=== PATIENT | male | born 1955 | race Caucasian/White ===

== ENCOUNTER 2022-12-30 15:21 | Emergency (ER) | payer MEDICARE, MEDICAID, SELFPAY ==
--- NOTE | ~2022-12-30 | XR_ITS ---
Examination: Bilateral foot. CLINICAL INDICATION: New for the wound, rule out osteomyelitis. COMPARISON: None. TECHNIQUE: 2 views each foot. FINDINGS: Left foot: There is talipes equinovarus deformity of left foot with hyperflexion of the ankle mortise with likely subluxation. No visible fracture or dislocation seen. As mild osteopenia. There is no cortical erosive changes or periosteal thickening seen to suspect osteomyelitis. There is no soft tissue swelling or gas visualized either. Right foot: There is talipes equinovarus deformity of the right foot and medial subluxation of proximal tibia and fibula at the ankle joint. There is mild soft tissue swelling along the anterior aspect of ankle joint. Mild osteopenia seen. There is no fracture or cortical erosive changes to suspect osteomyelitis. XR/XR foot LT 2V IMPRESSION: 1. 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 There is extreme flexion deformity of the ankle joint left foot. 2. There is no cortical erosive changes or periosteal thickening to suspect osteomyelitis in either foot.. 3. There is mild soft tissue swelling anterior to the right ankle joint but no fracture or cortical erosive changes seen.
--- NOTE | ~2022-12-30 | XR_ITS ---
Examination: Bilateral foot. CLINICAL INDICATION: New for the wound, rule out osteomyelitis. COMPARISON: None. TECHNIQUE: 2 views each foot. FINDINGS: Left foot: There is talipes equinovarus deformity of left foot with hyperflexion of the ankle mortise with likely subluxation. No visible fracture or dislocation seen. As mild osteopenia. There is no cortical erosive changes or periosteal thickening seen to suspect osteomyelitis. There is no soft tissue swelling or gas visualized either. Right foot: There is talipes equinovarus deformity of the right foot and medial subluxation of proximal tibia and fibula at the ankle joint. There is mild soft tissue swelling along the anterior aspect of ankle joint. Mild osteopenia seen. There is no fracture or cortical erosive changes to suspect osteomyelitis. XR/XR foot RT 2V IMPRESSION: 1. 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 There is extreme flexion deformity of the ankle joint left foot. 2. There is no cortical erosive changes or periosteal thickening to suspect osteomyelitis in either foot.. 3. There is mild soft tissue swelling anterior to the right ankle joint but no fracture or cortical erosive changes seen.
[2022-12-30 15:27] VITALS: BP 124/84; PULSE 99; O2SAT 97
[2022-12-30 15:45] VITALS: BP 115/78; PULSE 97; RESP 18; TEMP 36.8; O2SAT 96; BMI 24.7
--- NOTE | 2022-12-30 15:55 | ED_ITS ---
HPI - Extremity Injury (Lower) General Chief Complaint: Skin/Abscess/Foreign Body Stated Complaint: COLD FEET Time Seen by Provider: 12/30/22 15:45 Source: EMS Mode of arrival: EMS Limitations: other (Patient answers questions with yes or no answers only) History of Present Illness HPI Narrative: 67-year-old male with history of schizophrenia hypertension, high cholesterol, who by report is verbal but answers yes or no to questions who was sent to the emergency department from his long-term care facility, [facility] for evaluation coolness to his lower extremities and new wounds noted on the dorsal aspects both feet. The patient has deformities the lower extremities with the feet pointing inward and a severe angle. The patient does not appear to be in distress. Following information was obtained from the report sent in from the nursing facility: ?Has two newly identified areas. Area on left foot, raised, edges macerated, very cool to touch. Temperature not registering with temporal thermometer,reads 'LO', slight discoloration surrounding open area. Area on right foot, raised edges, macerated, moderate serosanguineous drainage. Wound area firm with soft area palpated laterally. Please x-ray Related Data Previous Rx's Medication Instructions Recorded cephalexin 500 mg capsule 500 mg PO QID 7 days #28 caps 12/30/22 Allergies Allergy/AdvReac Type Severity Reaction Status Date / Time Phenothiazines Allergy Unknown UNKNOWN Verified 12/30/22 15:44 [PHENOTHIAZINES] chlorpromazine Allergy Unknown Verified 12/30/22 15:44 [From Thorazine] fluphenazine Allergy Unknown Verified 12/30/22 15:44 Review of Systems 2 Review of Systems: Yes Unobtainable due to mental status [facility] Past Medical History [facility] Narrative: Past medical history: Schizophrenia, unspecified acquired deformities lower extremities, adverse effects of drugs, essential hypertension, high cholesterol. Social history: Patient is a resident of [facility]. Social History Smoked in Last 30 Days: No Use of substances other than those prescribed or required for medical reasons: No Advance Directives: No Advance Directives Information Provided: No Physical Exam 2 Vital Signs: Vital Signs: Last Vital Signs Temp 97.5 F 12/30/22 19:21 Pulse 100 12/30/22 19:21 Resp 18 12/30/22 19:21 BP 120/83 12/30/22 19:21 Pulse Ox 100 12/30/22 19:21 O2 Del Method Room Air 12/30/22 19:21 BMI result Body Mass Index 24.7 Vital signs were normal Exam General: Awake, alert in no distress, answers yes or no to questions, response to command Head: Normocephalic, atraumatic EENT: PERRL, Lids normal, sclera normal, conjunctiva normal, nose normal , ears normal, throat without erythema or exudates Neck: Supple, no adenopathy, no trachea midline or C-spine tenderness Lung: breath sounds symmetric, no wheezing, rales or rhonchi Chest: symmetric movement, nontender Heart: regular rate and rhythm, normal S1, S2 no murmurs or rubs Abdomen: soft, non-tender, nondistended, normal bowel sounds Extremities: Patient's lower extremities revealed an inversion deformity at the ankle which is chronic in appearance. Right foot has a very small puncture like wound which is draining serosanguineous fluid, the wound is surrounded by erythema which is warm to the touch. Left foot has a chronic appearing ulcer with granulation tissue and is cool to the touch. Both feet have good capillary refill, the patient has palpable dorsalis pedal pulses bilaterally in these were also easily obtained by Doppler. Psych: Pleasant, cooperative Medications Administered Discontinued Medications Generic Name Dose Route Start Last Admin Trade Name Freq PRN Reason Stop Dose Admin Cephalexin HCl 500 mg 12/30/22 17:55 12/30/22 18:54 Cephalexin 500 Mg Capsule PO 12/30/22 17:56 500 mg ONCE ONE Administration Cefazolin Sodium 2 gm/ Sodium 50 mls @ 100 mls/hr 12/30/22 19:00 12/30/22 20:19 Chloride IV 12/30/22 19:29 Infused ONCE ONE Infusion Medical Decision Making Medical Decision Making [facility] Narrative: 67-year-old male with history of schizophrenia hypertension, high cholesterol, who by report is verbal but answers yes or no to questions who was sent to the emergency department from his long-term care facility, [facility] for evaluation coolness to his lower extremities and new wounds noted on the dorsal aspects both feet. Vital signs were normal. Patient's right foot does have increased warmth erythema, there is a small puncture wound is draining serosanguineous fluid the patient does appear to cellulitis to this foot. The left foot has a chronic appearing which does not appear to be infected. Patient's left foot was cool than the right but I think this is secondary to infection of the right foot. Also, patient has good capillary refill and palpable dorsalis pedis pulses and easily obtain pulses by Doppler. Following evaluation was ordered: CBC, CMP, ESR, CRP, lactic acid, blood cultures x2, , wound culture of serosanguineous fluid, x-rays of both feet to rule out osteomyelitis. 18:58 My interpretation patient's laboratory evaluation as follows: Elevated WBC 87776, elevated ESR 27, CMP and lactic acid normal, CRP normal. X-rays of the patient's feet are difficult to interpret secondary however on my interpretation I do not see any evidence for osteomyelitis. Patient will be treated for cellulitis of the right foot with Ancef 2 g IV. Patient was given prescription for Keflex 500 mg 4 times a day for 7 days. Patient will need wound care. Differential Diagnosis Differential Diagnoses: The differential diagnosis associated with the presentation includes Differential diagnosis includes but is not limited to cellulitis, abscess, osteomyelitis, peripheral arterial disease Admission/Observation Consideration of admission/observation: Escalation of care including admission/observation considered Lab Data [facility] Lab Attestation statement: I reviewed the patient's lab results. See [facility] for my interpretation 12/30/22 16:45 12/30/22 16:45 Labs: Lab Results 12/30/22 12/30/22 Range/Units 16:45 16:56 WBC 11.2 H (4.8-10.8) X10*3/uL RBC 5.36 (4.60-5.80) X10*6/uL Hgb 14.0 (14.0-18.0) g/dl Hct 45.3 (42.0-52.0) % MCV 84.5 (80.0-98.0) fL MCH 26.1 L (27.0-33.0) pg MCHC 30.9 L (31.0-36.0) g/dl RDW 15.9 (11.0-16.0) % Plt Count 393 (160-400) X10*3/uL MPV 8.6 L (9.4-12.4) fL Immature Gran % (Auto) 0.3 (0.0-0.4) % Neut % (Auto) 72.7 (45-73) % Lymph % (Auto) 19.1 L (20-40) % [place] % (Auto) 4.9 (2-11) % Eos % (Auto) 2.3 (0-4) % Baso % (Auto) 0.7 (0-2) % Lymph # (Auto) 2.1 (1.2-4.9) X10*3/uL [place] # (Auto) 0.6 (0.1-1.2) X10*3/uL Eos # (Auto) 0.3 (0.0-0.4) X10*3/uL Baso # (Auto) 0.1 (0.0-0.2) X10*3/uL Abs Immat Gran (auto) 0.03 (0.00-0.03) X10*3/uL Absolute Neuts (auto) 8.1 (2.0-8.3) x10*3/uL Absolute Nucleated RBC 0.000 (0.0-0.012) X10*3/uL Nucleated RBC % (auto) 0.0 (0.0-0.2) /100WBC ESR 27 H (0-15) MM/HR Sodium 141 (135-145) mmol/L Potassium 4.6 (3.3-5.1) mmol/L Chloride 107 (96-108) mmol/L Carbon Dioxide 25 (22-29) mmol/L Anion Gap 14 (12-20) BUN 20 H (9-16) mg/dL Creatinine 0.97 (0.5-1.4) mg/dL Estim Creat Clear Calc 88.3 Estimated GFR > 60 Random Glucose 102 (60-115) mg/dL Lactic Acid 1.3 (0.5-2.0) mmol/L Calcium 10.2 (8.4-10.2) mg/dL Total Bilirubin 0.2 (0.0-1.0) mg/dL AST 15 (5-37) U/L ALT 10 (0-40) U/L Alkaline Phosphatase 94 (39-117) U/L C-Reactive Protein 0.37 (< or = 0.50) mg/dL Total Protein 7.8 (6.5-8.0) g/dL Albumin 4.0 (3.5-5.0) g/dL Independent Interpretation I performed an independent interpretation of an: Plain X-Ray Interpretation: My interpretation of the patient's right and left foot x-rays are as follows: X-rays were difficult to interpret secondary to anatomic abnormalities however there is no acute fracture or obvious osteomyelitis seen by me Radiology Impression Discussion of test interpretation with radiology: I have reviewed the radiologist's reading. Radiologist Impression: XR foot RT 2V and XR foot LT 2V IMPRESSION: 1. 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 There is extreme flexion deformity of the ankle joint left foot. 2. There is no cortical erosive changes or periosteal thickening to suspect osteomyelitis in either foot.. 3. There is mild soft tissue swelling anterior to the right ankle joint but no fracture or cortical erosive changes seen. Dictated By: Sky Mazariegos MD External Record Review External record reviewed: Outpatient record (half-way) Prescription Management I considered prescription management with: Antibiotic Discharge Plan Discharge Clinical Impression: Cellulitis of right foot, Foot ulcer, left Patient Disposition: er [facility] Transfer Details: Return to [facility] Instructions: Cellulitis (ED) Additional Instructions: Your exam is consistent with cellulitis of the right foot. Your blood work was unremarkable except for [place] [address] and an elevated ESR of 27 with a normal CRP X-rays of both feet did not reveal any fractures or obvious osteomyelitis on my interpretation of these x-rays You had good pulses detectable on both feet by palpation and by Doppler which is reassuring suggesting that you do not have acute arterial vascular compromise You were treated with Ancef 2 g IV. Take Keflex 500 mg, 1 pill 4 times a day for 7 days for skin infection/cellulitis You will need wound care provided by your facility to help these wounds on your feet heel pain Follow-up with your doctor in 2 days. Please return to the emergency department if your symptoms get worse or if you develop any symptoms that are concerning to you. Prescriptions: New cephalexin 500 mg capsule 500 mg PO QID 7 Days Qty: 28 0RF Interventions: ED Discharge Assessment Last Done: 12/30/22 21:11 Discharge Date/Time: 12/30/22 21:22
[2022-12-30 16:40] VITALS: BP 119/71; PULSE 97; RESP 18; TEMP 36.4; O2SAT 99
[2022-12-30 16:50] LABS: MANUAL DIFF FLAG NO
[2022-12-30 16:52] LABS: Basophils Absolute Auto 0.1 X10*3/uL (0.0-0.2); Basophils Percent Auto 0.7 % (0-2); Eosinophils Absolute Auto 0.3 X10*3/uL (0.0-0.4); Eosinophils Percent Auto 2.3 % (0-4); Hematocrit 45.3 % (42.0-52.0); Imm Gran Abs Auto 0.03 X10*3/uL (0.00-0.03); Imm Gran Pct Auto 0.3 % (0.0-0.4); Lymphocytes Absolute Auto 2.1 X10*3/uL (1.2-4.9); Lymphocytes Percent Auto 19.1 % (20-40); Mean Corpuscular HGB Conc 30.9 g/dl (31.0-36.0); Mean Corpuscular Hemoglobin 26.1 pg (27.0-33.0); Mean Corpuscular Volume 84.5 fL (80.0-98.0); Mean Platelet Volume 8.6 fL (9.4-12.4); Monocytes Absolute Auto 0.6 X10*3/uL (0.1-1.2); Monocytes Percent Auto 4.9 % (2-11); Neutrophils Absolute Auto 8.1 x10*3/uL (2.0-8.3); Neutrophils Percent Auto 72.7 % (45-73); Platelet Count 393 X10*3/uL (160-400); Red Blood Count 5.36 X10*6/uL (4.60-5.80); Red Cell Distribution Width 15.9 % (11.0-16.0); White Blood Count 11.2 X10*3/uL (4.8-10.8)
[2022-12-30 17:07] LABS: Alanine Aminotransferase 10 U/L (0-40); Alkaline Phosphatase 94 U/L (39-117); Anion Gap 14 (12-20); Aspartate Amino Transferase 15 U/L (5-37); Bilirubin Total 0.2 mg/dL (0.0-1.0); Blood Urea Nitrogen 20 mg/dL (9-16); C Reactive Protein 0.37 mg/dL (< or = 0.50); Calcium 10.2 mg/dL (8.4-10.2); Carbon Dioxide 25 mmol/L (22-29); Chloride 107 mmol/L (96-108); Creatinine Clr Calc Pharmacy 88.3; Estimated Glomerular Filt Rate > 60; Glucose Random 102 mg/dL (60-115); Potassium 4.6 mmol/L (3.3-5.1); Sodium 141 mmol/L (135-145); Total Protein 7.8 g/dL (6.5-8.0)
[2022-12-30 17:15] LABS: Lactic Acid 1.3 mmol/L (0.5-2.0)
[2022-12-30 17:49] LABS: Erythrocyte Sedimentation Rate 27 MM/HR (0-15)
[2022-12-30 18:24] VITALS: BP 103/66; PULSE 92; RESP 16; TEMP 36.7; O2SAT 95
--- NOTE | 2022-12-30 18:53 | PC.NURSE ---
eating dinner, denies pain, boosted, repositioned, new pad/blanket, voided x2 yellow clear urine in urinal
[2022-12-30] MEDS: cephALEXin 500 MG CAPSULE PO (18:54)
[2022-12-30 19:21] VITALS: BP 120/83; PULSE 100; RESP 18; TEMP 36.4; O2SAT 100
--- NOTE | 2022-12-30 19:24 | PC.NURSE ---
called [facility] to give report to rn re: d/c status
--- NOTE | 2022-12-30 19:29 | PC.NURSE ---
reports given to [facility] rn. community recreation coordinator arranging ambulance as facility is ready for him.
== END 2022-12-30 21:22 ==
PROVIDERS: Emergency Provider Emergency Medicine Emergency Medical Services
DX: L03.115 Cellulitis of right lower limb (principal); L97.529 Non-pressure chronic ulcer of other part of left foot with unspecified severity; M79.672 Pain in left foot; M79.671 Pain in right foot; Z79.899 Other long term (current) drug therapy
CPT/HCPCS: 36415; 73620; 80053; 83605; 85025; 85652; 86140; 87040; 87070; 87077; 87147; 87186; 87205; 96365; 99284; J0690